=== PATIENT | female | born 1940 | race Caucasian/White ===

== ENCOUNTER → 2016-07-29 | Outpatient (CLI) | payer OTHER ==
[~2016-07-29] MED LIST: ALPRAZOLAM0.25 MG PO; ALPRAZOLAM0.5 MG PO; ASPIRIN EC81 M1 PO; ASPIRIN81 M2 PO; BACTRIM DS TABL1 TA1 PO; BAYER ASPIRIN325 M1 PO; BENAZEPRIL-HCTZ1 T14 PO; CIPRO250 MG PO; COMBIVENT INH14.7 GM INH; ESCITALOPRAM OX10 MG PO; FOLIC ACID1 MG PO; IMDUR-ER30 M1 PO; IMDUR-ER30 MG PO; LASIX20 MG PO; LIPITOR40 MG PO; LOPRESSOR PO; METOPROLOL TART25 MG PO; MULTI-DAY VITAM1 TAB PO; NEXIUM PO; OMEPRAZOLE20 M1 PO; OMEPRAZOLE20 M2 PO; PLAVIX PO; PRILOSEC20 M1 PO; SIMVASTATIN80 MG PO; SYMBICORT; TOPROL XL 50 MG50 MG PO; VITAMIN B-1000 MCG/1 IJ
--- NOTE | ~2016-07-29 | US136 ---
[facility] A Service of [facility] & [facility] RADIOLOGY TEXT RESULTS PATIENT: ADELA BENAVIDES LOCATION: CNIV : 42 UNIT #: [id number] AGE: [address]: Suze Albarran MD SEX: F ORDER DR: [id number] [facility] [address] [place], [place] [address] [id number] O MR#: [id number] Acc #: [id number] NAME: ADELA BENAVIDES : 1940 SEX: F STUDY DATE/TIME: 07/29/2016 9:00 UNIT: CNIV ROOM: STUDY DESCRIPTION: US U/L Ext Art Study [facility] Bil Attending Physician: Suze Albarran M.D. Referring Physician: Suze Albarran M.D. Ordering Physician: Suze Albarran M.D. Primary Care Physician: Suze Albarran M.D. MEDICAL IMAGING REPORT This report is preliminary unless electronic signature is present EXAM Ankle-brachial indices, 07/29/2016. HISTORY Claudication. FINDINGS The right brachial artery pressure is 139. The right dorsalis pedis pressure is 68, with an ankle-brachial index of 0.49. The right posterior tibial pressure is 65, with an ankle-brachial index of 0.47. The right digital pressure is 43, with a toe index of 0.31. The left brachial artery pressure is 118. The left dorsalis pedis pressure is 64, with an ankle-brachial index of 0.46. The left posterior tibial pressure is 74, with an ankle-brachial index of 0.53. The left toe pressure is 58, with a toe index of 0.31_. The posterior tibial and dorsalis pedis wave forms are monophasic, bilaterally. The right and left ankle wave forms are irregular, without sharp upstrokes or systolic peaks. The right digital tracing is blunted. IMPRESSION 1. The right LISA is 0.49, consistent with advanced arterial insufficiency. 2. The left LISA is 0.53, consistent with moderate to advanced arterial insufficiency. *Faxed to the office of Dr. Tyson on 07/29/16. cd Dictated by... [facility] A Service of [facility] & [facility] RADIOLOGY TEXT RESULTS PATIENT: ADELA BENAVIDES LOCATION: CN : 42 UNIT #: [id number] AGE: [address]: Suze Albarran MD SEX: F ORDER DR: Messi Tyson M.D. THIS IS AN ELECTRONICALLY VERIFIED REPORT Messi Tyson M.D. at 07/29/2016 5:01 PM Oliva TD: 07/29/2016 11:01 JOB #: [id number] MEDICAL IMAGING REPORT Page 1 of 1 COPY
== END | disposition home or self-care (01) ==
LOC: CNIV 08:23
DX: I73.9 Peripheral vascular disease, unspecified (principal)
CPT/HCPCS: 93922

== ENCOUNTER → 2016-08-13 | Outpatient (CLI) | payer OTHER ==
[2016-08-13 12:46] LABS: BUN/CREATININE RATIO 13.33; CALCIUM SERUM 8.9 mg/dL (8.4-10.2); CREATININE SERUM 1.2 mg/dL (0.6-1.4); GLOM FILT RATE Estimated 44.8 mL/min (>60); POTASSIUM 4.7 mmol/L (3.5-5.1)
== END | disposition home or self-care (01) ==
LOC: CLAB 10:44
PROVIDERS: Surgery Vascular Surgery
DX: Z48.812 Encounter for surgical aftercare following surgery on the circulatory system (principal); I73.9 Peripheral vascular disease, unspecified; E78.5 Hyperlipidemia, unspecified; I10 Essential (primary) hypertension
CPT/HCPCS: 36415; 80048

== ENCOUNTER → 2016-08-20 | Outpatient (CLI) | payer OTHER ==
--- NOTE | ~2016-08-20 | OR ---
Unit #: [id number] #: [id number] Patient: ADELA BENAVIDES [id number] [address] [address] [id number] O MR#: [id number] NAME: ADELA BENAVIDES ROOM: Date of Procedure: 08/20/2016 Admission Date: 08/20/2016 Surgeon: Rojelio De M.D. : 1940 Attending Physician: Rojelio De M.D. Primary Care Physician: Suze Albarran M.D. OPERATIVE REPORT PREOPERATIVE DIAGNOSIS Peripheral arterial disease with severe life-limiting claudication. POSTOPERATIVE DIAGNOSIS Peripheral arterial disease with severe life-limiting claudication. PROCEDURES PERFORMED 1. Ultrasound-guided cannulation, left common femoral artery. 2. CO2 arteriogram, abdominal aorta. 3. Selective CO2 arteriogram, pelvic vessels. 4. Selective wire and catheter placement into the right external iliac artery with CO2 and contrast arteriogram of the right lower extremity. 5. Selective CO2 and contrast arteriogram of left lower extremity. 6. Placement of left common femoral artery 5-Kosovan Mynx closure device. ANESTHESIA Local and sedation, total time 75 minutes. COMPLICATIONS None. ESTIMATED BLOOD LOSS 10 mL. CONTRAST USED Isovue 42 mL. INDICATIONS FOR PROCEDURE The patient is a 75-year-old female with significant tobacco abuse and past history of carotid stenosis requiring endarterectomy, who returned to the office after a 4-year absence with increasing amount of discomfort in her lower extremities with walking. Her right leg was worse than the left leg. LISA studies and segmental pressure studies demonstrated severely diminished perfusion to the feet. She was recommended an arteriogram with potential intervention. She understood the planned procedure including the risks, benefits, complications, and alternatives, and she does wish to proceed. DESCRIPTION OF PROCEDURE The patient was taken to the operating room, placed on the operating room table in a supine position. Following continuous pulse, pulse oximetry, and blood pressure monitoring by nursing staff, she was given Versed and Unit #: [id number] #: [id number] Patient: ADELA BENAVIDES fentanyl for sedation. Total time of sedation was 75 minutes. The bilateral groins were then prepped and draped in a normal standard manner. Using fluoroscopy, the femoral heads were identified and marked on the skin with a marker. Using ultrasound, the left common femoral artery was identified and 1% lidocaine was infused over it. The left common femoral artery was then cannulated under direct ultrasound guidance with the arterial access needle, and a starter wire was then passed into the infrarenal aorta confirmed on fluoroscopy. A stab incision was created at the wire exit site and a 4-Kosovan sheath was advanced over the wire. A sheath arteriogram was performed with half-strength contrast with 2 mL of dye confirming common femoral artery placement. An Omni Flush catheter was then advanced into the abdominal aorta at the L1 vertebral body. This CO2 system was then prepared and connected to the catheter, and using hand injection of 30 mL of CO2, an abdominal arteriogram was performed. The catheter was withdrawn to the aortic bifurcation where LEIVA and SILVIA projection arteriograms performed of the pelvis each with a hand injection of 30 mL of CO2. Multiple further images were also taken with the catheter further extended into the right external iliac artery and the catheter withdrawn into the left common iliac artery. Using a Glidewire, the Omni Flush catheter was selectively placed into the right distal external iliac artery. Again, using CO2, contrast arteriogram was performed of the right lower extremity from the femoral head to the knee with hand injection of 30 mL of CO2. Below the knee, there was minimal opacification of the tibial vessels. The catheter was connected to the injector with half-strength contrast. A bolus-sam technique arteriogram of the right lower extremity was then performed from the femoral head to the toes with 40 mL volume at 4 mL/second. The catheter was then withdrawn to the proximal left external iliac artery where CO2 arteriogram was performed of the left lower extremity from the femoral head to the mid-calf with hand injection of CO2 in 30 mL aliquots in spot fashion. Further opacification of the tibial vessels below the mid-calf was poor. A bolus-sam technique arteriogram was then performed of the left lower extremity from the low thigh to the foot with half-strength contrast with 40 mL volume at 4 mL/sec. The Omni Flush catheter was then removed over a starter wire. The 4-Kosovan sheath was then removed and replaced with a 5-Kosovan sheath. A 5-Kosovan Mynx closure device was then advanced via the sheath into the arterial system and then placed accordingly with hemostasis being excellent. Pressure was held in the site for 5 minutes with no bleeding noted. Dressing was applied and the procedure was then terminated. The patient tolerated the procedure well and was taken to the recovery room in stable condition. All needle, sponge, and instrument counts were correct at the end of the case. FINDINGS The abdominal aorta was severely calcified and diseased throughout its course. There were single renal vessels bilaterally. There was a significant stenosis in the mid-infrarenal abdominal aorta, which appeared to be 50% to 60% in nature. There was also diffusely calcified disease in the distal aorta. The right and left common iliac arteries, internal iliac arteries, and external iliac arteries were heavily diseased and calcified throughout. There was an appearance of calcified plaque noted in the proximal right common iliac artery; however, the remainder of the external iliac artery was patent. The internal iliac artery was very small. The left common iliac artery and external iliac arteries were quite diseased throughout their course with diffuse atherosclerosis. Unit #: [id number] #: [id number] Patient: ADELA BENAVIDES The right common femoral artery and profunda femoral arteries were widely patent. The superficial femoral artery was occluded. The popliteal artery reconstituted above the knee via the profunda femoral artery collaterals and continued down to the calf without significant atherosclerotic disease, but the vessel was quite small. The anterior tibial artery appeared patent at its origin, but then had 75% stenosis, roughly 3 cm after its origin. It continued down into the foot beyond that is a small vessel, but appeared to be the single primary flow to the foot. The peroneal artery and posterior tibial arteries appeared patent to the mid to distal calf, but did not appear to cross into the foot. The left common femoral artery was widely patent as well as the profunda femoral artery. The superficial femoral artery was occluded. The popliteal artery reconstituted via profunda femoral artery collaterals and was widely patent throughout its course. There appeared to be good runoff into the left foot via the posterior tibial artery as well as peroneal artery without significant stenoses. The anterior tibial artery appeared to be patent at its origin, but had significant atherosclerosis throughout its course just beyond the origin and then appeared to not cross into the foot after the distal calf. Dictated by... Symone Maciel/yovany TD: 08/21/2016 05:56 JOB #: [id number] OPERATIVE REPORT Page 1 of 1 X Rojelio De MD PROCEDURE OPERATIVE NOTE
[2016-08-20 06:40] LABS: INR 0.9; PARTIAL THROMBOPLASTIN TIME 25.3 SECONDS (23.5-31.3); PROTHROMBIN TIME (PATIENT) 9.8 SECONDS (9.6-11.5)
[2016-08-20 06:45] LABS: HEMOGLOBIN 9.9 gm/dL (12.0-16.0); MEAN CELL VOLUME 76.9 FL (83-96); MEAN CORPUSCULAR HEMOGLOBIN 22.9 PG (28-34); MEAN CORPUSCULAR HGB CONC 29.8 g/dL (30-36); MEAN PLATELET VOLUME 9.4 FL (6.5-11.5); RED BLOOD COUNT 4.33 X10e (3.90-5.30); RED CELL DISTRIBUTION WIDTH 18.2 % (11.0-15.5); WHITE BLOOD COUNT 14.9 X10e3 (4.0-10.5)
[2016-08-20 06:46] LABS: HEMATOCRIT 33.3 % (35.0-45.0)
[2016-08-20 07:17] LABS: BUN/CREATININE RATIO 16.42; CALCIUM SERUM 9.4 mg/dL (8.4-10.2); CREATININE SERUM 1.4 mg/dL (0.6-1.4); GLOM FILT RATE Estimated 37.2 mL/min (>60); POTASSIUM 4.7 mmol/L (3.5-5.1)
== END | disposition home or self-care (01) ==
LOC: CIVR 05:42
PROVIDERS: Surgery Vascular Surgery
DX: I70.213 Atherosclerosis of native arteries of extremities with intermittent claudication, bilateral legs (principal); I70.0 Atherosclerosis of aorta; E78.5 Hyperlipidemia, unspecified; I10 Essential (primary) hypertension; Z79.82 Long term (current) use of aspirin
CPT/HCPCS: 36415; 75625; 75716; 80048; 85027; 85610; 85730; C1725; C1760; J1644; J2250; J3010; Q9967